=== PATIENT | male | born 1980 ===

== ENCOUNTER → 2018-11-30 | Outpatient (CLI) | payer OTHER ==
--- NOTE | 2018-12-13 13:06 | SP ---
DATE OF PROCEDURE: 11/30/2018 This is an outpatient study for 38-year-old gentleman with history of seizures, last episode the nigh t before the EEG. Also history of headaches, currently on: 1. Imitrex. 2. Keppra. 3. Klor-Con. DESCRIPTION OF PROCEDURE: Routine EEG was recorded digitally. Wstpw-er-dunbr and utcdj-gt-scd vero ges were recorded and reviewed. All impedances were measured and recorded. Cap electrodes were plac ed in accordance to International 10-20 system of electrode placement. FINDINGS: Symmetrically distributed background activity of low amplitude was seen in frequency of 10 cycles per second in the awake state. Eye opening attenuates the background. Photic stimulation pr oduces no definite driving. Hyperventilation elicits no epileptiform activity. When patient gets dr owsy and falls asleep, background rhythm gets less organized and slows down 4 to 6 cycles per second. No definite epileptiform activity was seen. No signs of ongoing electrographic seizures. No later alized slowing observed. IMPRESSION: Normal study. Please correlate clinically. Dictated By: NICOLASA RICHARDS/JARAD Conf#: [id number] DID#: [id number]
== END | disposition home or self-care (01) ==
LOC: EEG 10:28
PROVIDERS: ATTEND Internal Medicine
DX: R56.9 Unspecified convulsions (principal)
CPT/HCPCS: 95819